=== PATIENT | male | born 1960 | race Caucasian/White ===

== ENCOUNTER 2018-06-23 11:25 | Emergency (ER) | payer BC ==
--- NOTE | 2018-06-23 11:29 | PDOC ---
History of Present Illness - General Stated Complaint: FALL Time Seen by Provider: 06/23/18 11:28 - History of Present Illness Initial Comments: 58yo M with history of C4-C6 fusion surgery in 09/2017 and strabismus presenting after a fall. The episode occurred about an hour prior to arrival. The patient was doing yard work when he tripped and his rear end, left shoulder, and head hit the ground. He endorses 4-6/10 pain in his left shoulder. Reports no midline tenderness or any loss of mobility of his neck. No paraesthesias. Denies loss of consciousness, nausea, or vomiting. Denies tongue biting or urinary or fecal incontinence during/after the episode. No history of seizure or arrhythmia. Does not take aspirin or anticoagulants. Denies headache or open wound to the head. No fever, chills, shortness of breath, or chest pain. Past History - Past Medical History Allergies/Adverse Reactions: Allergies Allergy/AdvReac Type Severity Reaction Status Date / Time No Known Drug Allergies Allergy Verified 06/23/18 11:36 Home Medications: Ambulatory Orders NK [No Known Home Medication] 06/23/18 Anemia: No Asthma: No Cancer: No Cardiac Disorders: No CVA: No COPD: No CHF: No Dementia: No Diabetes: No GI Disorders: No Disorders: No HTN: No Hypercholesterolemia: No Liver Disease: No Seizures: No Thyroid Disease: No - Suicide/Smoking/Psychosocial Hx Smoking History: Never smoked Hx Alcohol Use: Yes (SOCIALLY) Drug/Substance Use Hx: No Substance Use Type: None Hx Substance Use Treatment: No Review of Systems - Review of Systems Comments:: Constitutional: no fever, no chills HEENT: no throat pain, no dysphagia Cardiovascular: no chest pain, no palpitations Respiratory: no cough, no shortness of breath Gastrointestinal: no abdominal pain, no nausea, no vomiting Genitourinary: no dysuria, no frequency Musculoskeletal: +shoulder pain, +back pain Skin: no rash, no itching Neurologic: no headache, no dizziness *Physical Exam - Physical Exam Comments: General: Awake, alert, and fully oriented, in no acute distress Head: No signs of trauma Eyes: EOMI, sclera anicteric, strabismus ENT: Moist mucus membranes Neck: Normal ROM, supple Lungs: Lungs clear, Normal breath sounds Cardio: Regular rhythm, S1 and S2 present Abdomen: Soft, nontender. No guarding, no rebound, no masses Extremities: Normal range of motion, Distal pulses present SKIN: Warm, Dry, normal turgor Neurologic: Cranial nerves II through XII intact. Normal speech, sensation, strength, coordination, and gait. Medical Decision Making - Medical Decision Making 58yo M with history of C4-C6 fusion surgery in 09/2017 and strabismus presenting after a fall. -DDX including but not limited to mechanical fall, syncope, seizure, arrythmia -Decision made to order CT Cspine as patient is s/p spinal fusion surgery. CT head to rule out brain bleed -Tylenol po for pain control -CT's negative for acute pathology -Toradol 30 IM given -Discharged. Patient and amenable to plan 06/23/18 13:14 *DC/Admit/Observation/Transfer Diagnosis at time of Disposition: Fall - Discharge Dispostion Disposition: HOME Condition at time of disposition: Stable - Referrals Referrals: Marika Whitehead MD [Primary Care Provider] - - Patient Instructions Printed Discharge Instructions: DI for Musculoskeletal Pain Additional Instructions: You came to the emergency department after a fall. CT imaging shows no acute pathology You can use ice for swelling and ccmr-hbl-sikmgva motrin or tylenol for pain control. Follow the instructions on the medication bottle. Follow up with your medicare contact specialist, Dr. Pratt, if your symptoms do not improve in five to seven days. Seek immediate medical attention if: you develop worsening pain, fever, weakness , incontinence, you pass out, or have any other new or concerning symptoms. If you think you are having an emergency, call for emergency medical services or present to the emergency department right away. - Post Discharge Activity
[2018-06-23 12:00] VITALS: BP 120/82; PULSE 55; TEMP 98.2; BMI 22.9
[2018-06-23] MEDS ORDERED: ACETAMINOPHEN 325 MG TABLET (FP) PO ONE (12:01)
[2018-06-23] MEDS ORDERED: LIDOCAINE 5% TOPICAL PATCH TP ONE (12:03)
[2018-06-23] MEDS ORDERED: LIDOCAINE 5% TOPICAL PATCH ONE (12:05)
[2018-06-23] MEDS ORDERED: ACETAMINOPHEN 325 MG TABLET (FP) ONE (12:05)
--- NOTE | 2018-06-23 12:49 | PDOC ---
Attending Attestation - Resident Resident Name: Esther Galdamez - ED Attending Attestation I have performed the following: I have examined & evaluated the patient, The case was reviewed & discussed with the resident, I agree w/resident's findings & plan, Exceptions are as noted - HPI HPI: 06/23/18 13:00 58 M with h/o C-spine surgery this year presents to ED with L sided neck pain after falling. Pt reports slipping on snow and falling backwards, landing on his behind and hitting his head. Denies LOC. Pt reports pain in the L side of his neck. Denies weakness/numbness in any extremity. Denies LENTZ/N/V. Denies any lower back pain. Denies any other pain. - Physicial Exam PE: 06/23/18 13:01 GENERAL: Awake, alert, and fully oriented, in no acute distress. HEAD: No signs of trauma EYES: PERRLA, EOMI, sclera anicteric, conjunctiva clear ENT: Auricles normal inspection, hearing grossly normal, nares patent, oropharynx clear without exudates. Moist mucosa NECK: + point tenderness over L trapezius, no midline tenderness, no stepoffs, Normal ROM, supple, no lymphadenopathy, JVD, or masses LUNGS: Breath sounds equal, clear to auscultation bilaterally. No wheezes, and no crackles HEART: Regular rate and rhythm, normal S1 and S2, no murmurs, rubs or gallops ABDOMEN: Soft, nontender, normoactive bowel sounds. No guarding, no rebound. No masses EXTREMITIES: Normal range of motion, no edema. No clubbing or cyanosis. No cords, erythema, or tenderness NEUROLOGICAL: Cranial nerves II through XII intact. 5/5 strength and sensation in all extremities, Normal speech, normal gait, normal cerebellar function SKIN: Warm, Dry, normal turgor, no rashes or lesions noted. - Medical Decision Making 06/23/18 12:50 58 M with C-spine surgery earlier this year, presenting after mechanical slip and fall. No neuro deficits on exam. - CT head/c-spine 06/23/18 13:02 CTs unremarkable Pt is well appearing, with normal vitals. Clinically stable for DC at this time. I discussed the physical exam findings, ancillary test results and final diagnoses with the patient. I answered all of the patient's questions. The patient was satisfied with the care received and felt comfortable with the discharge plan and treatment plan. The patient agrees to follow up with the primary care physician within 24-72 hours.
[2018-06-23] MEDS ORDERED: KETOROLAC TROMETHAMINE 30 MG/1 ML VIAL IM ONE (12:57)
[2018-06-23] MEDS ORDERED: KETOROLAC TROMETHAMINE 30 MG/1 ML VIAL ONE (13:01)
[2018-06-23] MEDS ORDERED: LIDOCAINE PATCH REMOVAL MC SCH (22:00)
== END 2018-06-23 13:21 | disposition home or self-care (01) ==
LOC: FER 11:25
PROC: 3E0233Z Introduction of Anti-inflammatory into Muscle, Percutaneous Approach (ICD-10-PCS; principal; 2018-06-23)
DX: M25.512 Pain in left shoulder (principal); Z98.1 Arthrodesis status; W01.0XXA Fall on same level from slipping, tripping and stumbling without subsequent striking against object, initial encounter; Y93.01 Activity, walking, marching and hiking; Y92.007 Garden or yard of unspecified non-institutional (private) residence as the place of occurrence of the external cause
CPT/HCPCS: 70450-TC; 72125-TC; 99281-25

== ENCOUNTER 2018-12-22 12:25 | Emergency (ER) | payer BC ==
--- NOTE | 2018-12-22 12:38 | PDOC ---
Attending Attestation - Resident Resident Name: Pipe Lemus - ED Attending Attestation I have performed the following: I have examined & evaluated the patient, The case was reviewed & discussed with the resident, I agree w/resident's findings & plan, Exceptions are as noted - HPI HPI: 58 yo M history cervical fusion, prior low back pain presents with exacerbation of low back pain. Worse with attempting to bend, twist or lift. Pain is moderate to severe. Localizes to L low back. Does not radiate. No numbness, weakness. Denies trauma. - Physicial Exam PE: GENERAL: Awake, alert, and fully oriented, in no acute distress HEAD: No signs of trauma EYES: PERRLA, EOMI, sclera anicteric, conjunctiva clear ENT: Auricles normal inspection, hearing grossly normal, nares patent, oropharynx clear without exudates. Moist mucosa NECK: Normal ROM, supple, no lymphadenopathy, JVD, or masses LUNGS: Breath sounds equal, clear to auscultation bilaterally. No wheezes, and no crackles HEART: Regular rate and rhythm, normal S1 and S2, no murmurs, rubs or gallops ABDOMEN: Soft, nontender, normoactive bowel sounds. No guarding, no rebound. No masses EXTREMITIES: Normal range of motion, no edema. No clubbing or cyanosis. No cords, erythema, or tenderness NEUROLOGICAL: Cranial nerves II through XII grossly intact. Normal speech, antalgic gait. Motor and sensation intact SKIN: Warm, Dry, normal turgor, no rashes or lesions noted. SPINE: No midline tenderness, no stepoffs. +Soft tissue tenderness to L lateral low back. - Medical Decision Making Suspect MSK back pain. Will give NSAID (which has helped him in the past) and lidoderm patch. If this does not help, will consider a benzo vs percocet.
[2018-12-22 12:47] VITALS: BP 120/90; PULSE 65; TEMP 98; BMI 22.9
[2018-12-22] MEDS ORDERED: KETOROLAC TROMETHAMINE 30 MG/1 ML VIAL IM ONE (13:12)
[2018-12-22] MEDS ORDERED: LIDOCAINE 5% TOPICAL PATCH TP ONE (13:13)
[2018-12-22] MEDS ORDERED: LIDOCAINE 5% TOPICAL PATCH ONE (13:18)
[2018-12-22] MEDS ORDERED: KETOROLAC TROMETHAMINE 60 MG/2 ML VIAL ONE (13:18)
[2018-12-22] MEDS ORDERED: diazePAM 5 MG TABLET PO ONE (13:52)
--- NOTE | 2018-12-22 13:53 | PDOC ---
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 Pt states the pain is sharp, intermittent, and non-radiating. Endorses a history of similar pain approx. 1-2 times per year. Usually improves with Toradol injection. Tried taking Advil and a hot shower earlier without relief. Denies numbness/tingling in lower legs, pain in legs, difficulty voiding, bowel incontinence, or saddle anesthesia. Has a f/u appointment with neurosurgeon at [facility] scheduled in the next two weeks. \ Requested not to be given Robaxin as it gives him cotton brain. PCP: Dr. Herbie Ocasio Social Hx: - plant operations worker Medical Hx: - S/p C5-6-7 fusion/instrumentation (2017) - S/p TURP w/o post-op complications Review of Systems: In addition to that documented in the HPI above, the additional ROS was obtained : Constitutional: Denies fevers or chills Head: Denies vision changes ENMT: Denies sore throat CV: Denies chest pain Resp: Denies SOB GI: Denies vomiting or diarrhea : Denies painful urination, hematuria, or discharge MSK: Denies recent trauma Skin: Denies new rashes Neuro: Denies new numbness or tingling or weakness Endocrine: Denies polyuria Heme: Denies bleeding or bruising Physical Examination: Constitutional: Well-developed, well-nourished adult male in no acute distress or obvious discomfort. Found sitting upright on chair. Alert and oriented x4. Answered all questions appropriately and completely. Speech was non-labored, non -pressured. Pt flexed in discomfort multiple times throughout the interview. Head: Normocephalic. No obvious external signs of trauma. Cardiovascular / Chest: Regular rate and regular rhythm. No murmur, rubs, clicks , or gallops. Peripheral pulses: radial pulses full. Respiratory: Breathing unlabored. Equal chest rise and fall. Clear to auscultation bilaterally. No stridor, no wheezing, no rhonchi. Gastrointestinal: abdomen is soft, non-tender, non-distended. No overlying skin lesions or obvious signs of trauma. Neuro: Alert and oriented. Moving all four extremities spontaneously. No focal deficits. Sensation to all four extremities intact. Lower right extremity: proximal and distal strength 5/5. Plantar flexion and dorsiflexion 5/5. MSK: Diffuse tenderness to left lower back/flank; area more tense than right. No midline tenderness. No bruising or other skin lesions. Skin: Warm, dry, and intact.. : No R or L CVA tenderness. Psych: Affect: appropriate. Mood: normal. MDM: *Reviewed vital signs, nursing notes, and prior visit documentation (if available). 58 y/o male presenting with left lower back pain without radiculopathy. No red flags identified. Afebrile. Vitals unremarkable for tachycardia or hypotension. Physical exam as described above. Suspect likely muscle spasm. Low suspicion for Cauda Equina or abscess. Ordered Toradol and Lidoderm patch for symptom relief. Pt reassessed and reports no relief from pain. Will trial Valium. Pt apprached MD workstation (ambulating without assistance) requesting to be discharged home. States the pain has not significantly improved but that he would like to rest at home in a comfortable position. also present and stats she will drive the pt home and monitor his condition. Will prescribe short course of Percocet for pain relief. Encouraged pt to f/u with neurosurgeon. Pipe Lemus M.D., PGY1 Emergency Medicine Resident Past History - Past Medical History Allergies/Adverse Reactions: Allergies Allergy/AdvReac Type Severity Reaction Status Date / Time No Known Drug Allergies Allergy Verified 12/22/18 12:27 Home Medications: Ambulatory Orders Oxycodone HCl/Acetaminophen [Percocet 5-325 mg Tablet] 1 tab PO Q6H PRN #12 tablet MDD 4 tabs 12/22/18 Anemia: No Asthma: No Cancer: No Cardiac Disorders: No CVA: No COPD: No CHF: No Dementia: No Diabetes: No GI Disorders: No Disorders: No HTN: No Hypercholesterolemia: No Liver Disease: No Seizures: No Thyroid Disease: No - Suicide/Smoking/Psychosocial Hx Smoking History: Never smoked Hx Alcohol Use: Yes (SOCIAL) Drug/Substance Use Hx: No Substance Use Type: None Hx Substance Use Treatment: No *Physical Exam - Vital Signs Last Vital Signs Temp Pulse Resp BP Pulse Ox 98.0 F 65 18 120/90 98 12/22/18 12:26 12/22/18 12:26 12/22/18 12:26 12/22/18 12:26 12/22/18 12:26 ED Treatment Course - Medications Given in the ED: ED Medications Discontinued Medications Generic Name Dose Route Start Last Admin Trade Name Natasha PRN Reason Stop Dose Admin Ketorolac Tromethamine 60 mg 12/22/18 13:12 12/22/18 13:20 Toradol Injection - IM 12/22/18 13:13 60 mg ONCE ONE Administration Lidocaine 1 patch 12/22/18 13:13 12/22/18 13:24 Lidoderm Patch - TP 12/22/18 13:14 1 patch ONCE ONE Administration *DC/Admit/Observation/Transfer Diagnosis at time of Disposition: Pain in lower back Qualifiers: Chronicity: acute Back pain laterality: left Sciatica presence: without sciatica Qualified Code(s): M54.5 - Low back pain - Discharge Dispostion Disposition: HOME Condition at time of disposition: Good Decision to Admit order: No - Prescriptions Prescriptions: Oxycodone HCl/Acetaminophen [Percocet 5-325 mg Tablet] 1 tab PO Q6H PRN #12 tablet MDD 4 tabs PRN Reason: Severe Pain - Referrals Referrals: Marika Whitehead MD [Primary Care Provider] - - Patient Instructions Printed Discharge Instructions: DI for Low Back Pain Additional Instructions: You were seen today for left lower back pain, which appears to be an exacerbation of your chronic lower back pain. You were given Toradol and Valium without relief, but you requested to go home and rest. I have sent a prescription for Percocet to your pharmacy. Wait a few hours before taking this medication because it can interact with the Valium you receiving. Follow up with your neurosurgeon or your primary care doctor within the next few days. You will need to call to make an appointment. Go to the nearest emergency department if your condition worsens or you feel like you need additional emergency evaluation. Print Language: JAMAICAN - Post Discharge Activity Forms/Work/School Notes: Back to Work
[2018-12-22] MEDS ORDERED: diazePAM 5 MG TABLET ONE (13:55)
[2018-12-22] MEDS ORDERED: LIDOCAINE PATCH REMOVAL MC SCH (22:00)
== END 2018-12-22 14:26 | disposition home or self-care (01) ==
LOC: FER 12:25
PROC: 3E0233Z Introduction of Anti-inflammatory into Muscle, Percutaneous Approach (ICD-10-PCS; principal; 2018-12-22)
DX: M54.5 Low back pain (principal)
CPT/HCPCS: 99282-25

== ENCOUNTER 2019-08-21 06:20 | Emergency (ER) | payer BC ==
--- NOTE | 2019-08-21 06:26 | PDOC ---
History of Present Illness - General Chief Complaint: Pain, Acute Stated Complaint: RIGHT FLANK PAIN Time Seen by Provider: 08/21/19 06:25 History Source: Patient Exam Limitations: No Limitations - History of Present Illness Initial Comments: 08/21/19 06:29 This is a 59-year-old male who comes in complaining of acute onset right flank pain. Patient denies history of similar pain in the past. Patient denies history of kidney stones in the past. Patient says he is some associated nausea but no vomiting. Patient is otherwise healthy. Allergies: as per nursing notes Past Medical History: none Social history: Lives with family. No smoking. No alcohol. No illicit drugs. Surgical history: None General: No fevers or chills, no weakness, no weight loss HEENT: No change in vision. No sore throat,. No ear pain CardioVascular: no chest discomfort. No shortness of breath Respiratory:No cough, or wheezing. Gastrointestinal: + nausea, no vomiting, diarrhea or constipation, No rectal bleeding Genitourinary: No dysuria, hematuria, or frequency, plus right flank pain Musculoskeletal: No joint or muscle pain or swelling Neurologic: No headache, vertigo, dizziness or loss of consciousness Psychiatric: nor depression Skin: No rashes or easy bruising Endocrine: no increased thirst or abnormal weight change Allergic: no skin or latex allergy All other systems reviewed and normal GENERAL: The patient is awake, alert, and fully oriented, in no acute distress. HEAD: Normal with no signs of trauma. EYES: Pupils equal, round and reactive to light, extraocular movements intact, sclera anicteric, conjunctiva clear. Back: Tenderness on palpation right CVA area and right flank EXTREMITIES:atraumatic, Normal range of motion, no edema. NEUROLOGICAL: Normal speech, normal gait. PSYCH: Normal mood, normal affect. SKIN: Warm, Dry, normal turgor, no rashes or lesions noted. Assessment and plan: This is a 59-year-old male who comes in complaining of right flank pain. Patient symptoms are most consistent with a kidney stone however could also be muscle in nature. Work-up initiated including CBC, comp, spiral CT. Patient given Toradol and IV fluids. Past History - Past Medical History Allergies/Adverse Reactions: Allergies Allergy/AdvReac Type Severity Reaction Status Date / Time No Known Drug Allergies Allergy Verified 08/21/19 06:29 Home Medications: Ambulatory Orders NK [No Known Home Medication] 08/21/19 Anemia: No Asthma: No Cancer: No Cardiac Disorders: No CVA: No COPD: No CHF: No Dementia: No Diabetes: No GI Disorders: No Disorders: No HTN: No Hypercholesterolemia: No Liver Disease: No Seizures: No Thyroid Disease: No - Psycho Social/Smoking Cessation Hx Smoking History: Never smoked Hx Alcohol Use: Yes (SOCIAL) Drug/Substance Use Hx: No Substance Use Type: None Hx Substance Use Treatment: No Discharge - Discharge Information Problems reviewed: Yes Clinical Impression/Diagnosis: Right flank pain Condition: Stable - Follow up/Referral - Patient Discharge Instructions - Post Discharge Activity
[2019-08-21] MEDS ORDERED: KETOROLAC TROMETHAMINE 30 MG/1 ML VIAL ONE (06:27)
[2019-08-21] MEDS ORDERED: SODIUM CHLORIDE 1,000 ML IV ONE (06:31)
[2019-08-21] MEDS ORDERED: KETOROLAC TROMETHAMINE 30 MG/1 ML VIAL IVPUSH ONE (06:31)
[2019-08-21] MEDS ORDERED: ONDANSETRON 4 MG/2 ML VIAL IVPB ONE (06:32)
[2019-08-21] MEDS ORDERED: ONDANSETRON 4 MG/2 ML VIAL ONE (06:33)
[2019-08-21 06:39] VITALS: TEMP 97.7; BMI 24.0
[2019-08-21] MEDS ORDERED: morphine SULFATE 4 MG/ML VIAL ONE ×2 (06:45→07:32)
[2019-08-21] MEDS ORDERED: morphine CARPU-JECT 4 MG/1 ML DISP.SYRIN IVPUSH ONE ×2 (06:48→07:32)
--- NOTE | 2019-08-21 06:48 | PDOC ---
*Physical Exam - Vital Signs Last Vital Signs Temp Pulse Resp BP Pulse Ox 97.7 F 57 L 16 138/85 99 08/21/19 06:31 08/21/19 06:31 08/21/19 06:31 08/21/19 06:31 08/21/19 06:31 ED Treatment Course - LABORATORY CBC & Chemistry Diagram: 08/21/19 06:45 08/21/19 06:45 - Medications Given in the ED: ED Medications Discontinued Medications Generic Name Dose Route Start Last Admin Trade Name Frealanna PRN Reason Stop Dose Admin Ketorolac Tromethamine 30 mg 08/21/19 06:31 08/21/19 06:41 Toradol Injection - IVPUSH 08/21/19 06:32 30 mg ONCE ONE Administration Ondansetron HCl 4 mg 08/21/19 06:32 08/21/19 06:41 Zofran Injection IVPB 08/21/19 06:33 4 mg ONCE ONE Administration Medical Decision Making - Medical Decision Making 08/21/19 12:15 Urinalysis shows 20-40 red cells, 3+ blood. No sign of infection CBC and chemistries without significant abnormalities except for mildly elevated BUN of 26 with creatinine 1.3 The patient's pain gradually resolved, CT showed 3.5 mm calculus in the mid ureter with mild hydronephrosis and hydroureter. Multiple other nonobstructing stones were noted in the kidneys. The patient was given a strainer to strain his urine, prescribed antiemetic and analgesic, and discharged with his in no significant pain or other distress. Return to ER if pain becomes severe and unmanageable with medication , where there is fever/chills, increased back pain. Otherwise follow-up with urologist as directed. Discharge - Discharge Information Problems reviewed: Yes Clinical Impression/Diagnosis: Right flank pain Condition: Stable - Admission No - Additional Discharge Information Prescriptions: Ibuprofen 800 mg PO TID PRN #20 tablet PRN Reason: Pain Ondansetron [Zofran *Odt*] 4 - 8 mg SL TID PRN #20 od.tablet PRN Reason: Nausea And/Or Vomiting Oxycodone HCl/Acetaminophen [Percocet 10-325 mg Tablet] 2 tab PO Q4HWA PRN #20 tablet MDD 6 PRN Reason: Severe Pain - Follow up/Referral Referrals: Cipriano Montano MD [Staff Physician] - 1 week - Patient Discharge Instructions Patient Printed Discharge Instructions: Kidney Stones -- Adult - Post Discharge Activity
[2019-08-21] MEDS ORDERED: ACETAMINOPHEN INJECTION 100 ML IVPB ONE (07:50)
[2019-08-21 07:55] LABS: BASO % 0.3 % (0-2.0); EOS % 1.3 % (0-4.5); HEMOGLOBIN 14.8 GM/dl (11.7-16.9); LYMPH % 29.4 % (8-40); MCH 29.2 pg (25.7-33.7); MCHC 33.6 g/dl (32.0-35.9); MEAN CELL VOLUME 86.8 fl (80-96); MEAN PLT VOLUME 10.7 fl (7.5-11.1); MONO % 7.5 % (3.8-10.2); NEUT % 61.5 % (42.8-82.8); PLATELET COUNT 231 K/MM3 (134-434); RBC 5.07 M/mm3 (4.00-5.60); RDW 12.8 % (11.9-15.9)
[2019-08-21 07:57] LABS: ALBUMIN 4.2 g/dl (3.4-5.0); BILIRUBIN,TOTAL 0.8 mg/dl (0.2-1); CALCIUM 9.3 mg/dl (8.5-10); CREATININE 1.3 mg/dl (0.55-1.3); POTASSIUM 4.1 mmol/L (3.5-5.1); TOT PROT 6.8 g/dl (6.4-8.2)
[2019-08-21] MEDS ORDERED: ACETAMINOPHEN 1000 MG/100 ML VIAL (NON FORMULARY) IVPB ONE (08:09)
[2019-08-21] MEDS ORDERED: SODIUM CHLORIDE 1,000 ML IV STA (08:16)
[2019-08-21 10:08] VITALS: BP 120/86; PULSE 52
[2019-08-21 10:41] LABS: EPITHELIAL CELLS RARE /hpf
== END 2019-08-21 10:16 | disposition home or self-care (01) ==
LOC: FER 06:20
PROC: 3E0337Z Introduction of Electrolytic and Water Balance Substance into Peripheral Vein, Percutaneous Approach (ICD-10-PCS; principal; 2019-08-21)
PROC: 3E033NZ Introduction of Analgesics, Hypnotics, Sedatives into Peripheral Vein, Percutaneous Approach (ICD-10-PCS; 2019-08-21)
PROC: 3E0333Z Introduction of Anti-inflammatory into Peripheral Vein, Percutaneous Approach (ICD-10-PCS; 2019-08-21)
PROC: 3E033GC Introduction of Other Therapeutic Substance into Peripheral Vein, Percutaneous Approach (ICD-10-PCS; 2019-08-21)
DX: R10.31 Right lower quadrant pain (principal)
CPT/HCPCS: 36415; 74176-TC; 80053; 81003; 81015; 85025; 99283-25; J0131; J7030

== ENCOUNTER 2019-09-11 08:39 | Day surgery (SDC) | payer BC ==
--- NOTE | 2019-08-14 10:53 | HP ---
DATE OF ADMISSION:09/11/2019 DATE OF DICTATION: 07/11/2019 Patient to be admitted to the hospital to the [facility] at [facility] in the near future; date to be determined. HISTORY: This is a 59-year-old man who has had a longstanding, progressively-enlarging soft tissue mass involving the left flank region. Considering it has continued to increase in size, he has decided at this juncture to proceed with excision. PAST MEDICAL HISTORY: Essentially nil. No history of hypertension, heart disease, diabetes, respiratory or hepatic insufficiency. PAST SURGICAL HISTORY: Significant for TURP in 2017 for BPH; cervical fusion, C5 through C7 in 2018 for what appears to be compressive symptoms related to his upper extremities, also with strabismus. ALLERGIES: None known. CURRENT MEDICATIONS: None. SOCIAL HISTORY: Negative tobacco. Positive alcohol, 2 drinks weekly. FAMILY HISTORY: Father, age 93, history of aortic aneurysm, pacemaker, cholecystectomy. Mother well with no issues at 89. Siblings: One with atrial fibrillation, one with BPH. REVIEW OF SYSTEMS: Otherwise nil. PHYSICAL EXAMINATION: Musculoskeletal: On examination, the patient has a 5-cm soft tissue mass involving the left flank. The mass appears to be confined to the subcutaneous space, but is somewhat tethered in its deeper plane. There are no satellite lesions or sharon lymphadenopathy. IMPRESSION: Enlarging soft tissue neoplasia, left flank. PLAN: Excision of enlarging soft tissue neoplasia, left flank under local anesthesia with sedation. Indications, alternatives, possible complications reviewed. Consent obtained. SANTOS ZAVALA M.D. [id number] cc: Ashok Bravo MD, [address] [place] [address]; [phone]
[2019-08-30 09:20] VITALS: BMI 24.3
[2019-09-11] MEDS ORDERED: MIDAZOLAM HCL 2 MG/2 ML SINGLE DOSE VIAL ONE (11:26)
[2019-09-11] MEDS ORDERED: LIDOCAINE 1%/EPI 1:100000 (20 ML MULTI DOSE VIAL) ONE (11:30)
[2019-09-11] MEDS ORDERED: EPHEDRINE SULFATE/0.9% NACL/PF 50 MG/10 ML SYRINGE NR ONE (11:32)
[2019-09-11] MEDS ORDERED: LIDOCAINE 1%/EPI 1:100000 (20 ML MULTI DOSE VIAL) INF ONE ×2 (11:46)
[2019-09-11] MEDS ORDERED: GUM MASTIC/STORAX/MSAL/ALCOHOL 1 DRP DROPSBTL MC ONE (11:59)
[2019-09-11 12:32] VITALS: TEMP 97.5
[2019-09-11] MEDS ORDERED: ACETAMINOPHEN 325 MG TABLET (FP) PO PRN (12:50)
[2019-09-11] MEDS ORDERED: ONDANSETRON 4 MG/2 ML VIAL IVPUSH PRN (12:50)
[2019-09-11] MEDS ORDERED: oxyCODONE HCL 5 MG TABLET PO PRN ×2 (12:50)
[2019-09-11] MEDS ORDERED: LACTATED RINGERS SOLUTION 1,000 ML IV SCH (13:00)
[2019-09-11 13:27] VITALS: BP 120/71; PULSE 76
--- NOTE | 2019-09-11 22:11 | OP ---
DATE OF OPERATION: 09/11/2019 PREOPERATIVE DIAGNOSIS: Soft tissue neoplasia of left lateral chest wall. POSTOPERATIVE DIAGNOSIS: Intramuscular lipomatous neoplasia, left lateral chest wall. PROCEDURE: Excision of intramuscular neoplasia, left lateral chest wall/intermediate wound closure (6 cm). OPERATING SURGEON: Richmond Dupree MD TECHNICAL PROJECT LEAD: None. ANESTHESIA: Local (1% lidocaine with epinephrine)/monitored anesthesia care. HISTORY: This is a 59-year-old man who presents for excision of a palpable soft tissue mass of the left flank region. Indications, alternatives, possible complications were reviewed. Consent obtained. DESCRIPTION OF PROCEDURE: With the patient in the right lateral decubitus position, the left lateral chest wall was prepped and draped in usual sterile fashion using chlorhexidine. Lidocaine was used to infiltrate the soft tissues to create a field block in the intended level of excision. A 6-cm incision was made directly over the palpable abnormality and deepened into the subcutaneous space. Deep to the [place] subcutaneous tissue, a lipomatous neoplasia was easily encountered. It was obvious that the bulk of the mass was emanating from the fibers of the musculature below. The mass was teased from its muscular bed and ultimately delivered en bloc. After adequate hemostasis, the wound was closed in layers. The fascia at the muscle layer was approximated using interrupted 2-0 chromic sutures. The subcutaneous tissues were approximated using interrupted 3-0 chromic sutures. The subcuticular layer was approximated using subcuticular 4-0 Biosyn sutures. The skin edges were approximated using 4-0 Biosyn in the subcuticular space in continuous fashion. Mastisol and Steri-Strips were applied. Procedure terminated. Needle, sponge, and instrument count correct. ESTIMATED BLOOD LOSS: Minimal. SPECIMEN: Intramuscular neoplasia, left lateral chest wall. DRAINS: None. Patient tolerated the procedure. Procedure was terminated. RICHMOND DUPREE M.D. [id number]
--- NOTE | 2019-09-13 14:48 | PATH ---
Surgical Pathology Report Patient Name: BISHOP MOSQUERA [facility]. Rec. #: [id number] /Age/Gender: 1960 (Age: 59) / M Account: [id number] Location: [facility] Taken: 09/11/2019 Received: 09/11/2019 Reported: 09/13/2019 Physicians: Richmond Dupree M.D. Specimen(s) Received INTRAMUSCULAR LIPOMA LEFT FLANK Clinical History Mass left flank Final Diagnosis INTRAMUSCULAR LIPOMA, FLANK, LEFT, EXCISION: MATURE FIBROADIPOSE TISSUE AND SCANT PERIPHERAL SKELETAL MUSCLE CONSISTENT WITH INTRAMUSCULAR LIPOMA. Electronically Signed Barbie Reddy M.D. Gross Description Received in formalin labeled "intramuscular lipoma left flank," is a 6.0 x 4.4 x 1.5 cm portion of yellow, lobulated adipose tissue. Sectioning reveals homogeneous yellow, smooth fat. No areas of hemorrhage or necrosis are identified. Power Reactor Operator sections are submitted in 3 cassettes. /09/12/2019 [facility]09/12/2019
== END 2019-09-11 13:00 | disposition home or self-care (01) ==
LOC: FASU 08:39
PROVIDERS: ATTEND Surgery
PROC: 0KBG0ZZ Excision of Left Trunk Muscle, Open Approach (ICD-10-PCS; principal; 2019-09-11 10:00)
DX: D17.9 Benign lipomatous neoplasm, unspecified (principal)
CPT/HCPCS: 88304-TC

== ENCOUNTER 2024-08-13 04:25 | Day surgery (SDC) | payer BC ==
[2024-07-02 12:36] VITALS: BMI 23.3
[~2024-08-13 04:25] MED LIST: LACTATED RINGERS SOLUTION 1,000 ML IV SCH; ONDANSETRON 4 MG/2 ML VIAL IVPUSH PRN
[2024-08-13] MEDS ORDERED: PROPOFOL 40 ML ONE (07:13)
[2024-08-13] MEDS ORDERED: LIDOCAINE HCL/PF 2% SDV 5ML VIAL ONE (07:14)
[2024-08-13] MEDS ORDERED: SUCCINYLCHOLINE CHLORIDE 200 MG/10 ML SYRINGE ONE (07:16)
[2024-08-13] MEDS ORDERED: ONDANSETRON 4 MG/2 ML VIAL ONE (07:17)
[2024-08-13] MEDS ORDERED: DEXAMETHASONE SOD PHOSPHATE 4 MG/1 ML VIAL ONE (07:17)
[2024-08-13] MEDS ORDERED: MIDAZOLAM HCL 2 MG/2 ML SINGLE DOSE VIAL ONE (07:20)
[2024-08-13] MEDS ORDERED: ceFAZolin SODIUM 1 GM VIAL ONE (07:44)
[2024-08-13] MEDS: ceFAZolin SODIUM 1 GM VIAL IVPB ONE ×2 (07:49→07:50)
[2024-08-13] MEDS ORDERED: oxyCODONE HCL 5 MG TABLET PO PRN (08:45)
[2024-08-13] MEDS ORDERED: DEXTROSE 5%-0.45% SALINE 1,000 ML IV SCH (08:45)
[2024-08-13] MEDS ORDERED: oxyCODONE HCL 5 MG TABLET ONE ×3 (09:57→13:00)
[2024-08-13] MEDS: oxyCODONE HCL 5 MG TABLET PO PRN (10:07)
[2024-08-13] MEDS: oxyCODONE HCL 5 MG TABLET PO ONE ×2 (11:50→13:04)
[2024-08-13 13:27] VITALS: BP 122/77; PULSE 75; RESP 18; TEMP 98.2
== END 2024-08-13 13:17 | disposition home or self-care (01) ==
LOC: JASU-SURG 04:25
PROVIDERS: ATTEND Urology
PROC: 0VT08ZZ Resection of Prostate, Via Natural or Artificial Opening Endoscopic (ICD-10-PCS; principal; 2024-08-13 07:30)
DX: N40.1 Benign prostatic hyperplasia with lower urinary tract symptoms (principal); R31.0 Gross hematuria
CPT/HCPCS: 88305-TC; 94760